=== PATIENT | female | born 1985 | race Caucasian/White ===

== ENCOUNTER 2018-06-23 05:14 | Emergency (ER) | payer MEDICARE ==
[~2018-06-23] VITALS: Ht 170.2 cm; Wt 247.7 kg
[~2018-06-23 05:14] MED LIST: BAYER CHEWABLE81 MG PO; K-DUR20 MEQ PO; LAMICTAL150 MG PO; LASIX20 MG PO; LEVAQUIN500 MG PO; PERCOCET 10/3251 TA1 PO; PROAIR HFA8.5 GM INH; XANAX1 MG PO
[2018-06-23 05:15] VITALS: Ht 170.2 cm; Wt 247.7 kg
[2018-06-23] MEDS ORDERED: LASIX40 MG PO (05:16)
[2018-06-23] MEDS ORDERED: ADDERALL 30 MG30 MG PO (05:16)
[2018-06-23] MEDS ORDERED: CELEBREX400 MG PO (05:16)
[2018-06-23] MEDS ORDERED: LAMICTAL200 MG PO (05:16)
[2018-06-23] MEDS ORDERED: IMIPRAMINE10 MG PO (05:17)
[2018-06-23] MEDS ORDERED: SEROQUEL50 MG PO (05:17)
[2018-06-23] MEDS ORDERED: KLOR-CON 1010 MEQ (05:17)
[2018-06-23] MEDS ORDERED: CELEXA40 MG PO (05:19)
[2018-06-23 06:07] LABS: BASOPHILS 0.5 % (0-2); EOSINOPHILS 4.1 % (0-7); HEMATOCRIT 43.3 % (36.0-48.0); HEMOGLOBIN 13.9 g/dL (12-16); IMMATURE GRANULOCYTES 0.2 % (0-5); LYMPHOCYTES 24.1 % (15-50); MCH 32.1 pg (26.0-34.0); MCHC 32.1 g/dL (31.0-37.0); MEAN PLATELET VOLUME 9.7 fL (7.4-10.4); NEUTROPHILS 66.1 % (40-80); PLATELET COUNT 259 10x3/uL (130-400); RBC 4.33 10x6/uL (4.00-5.40); RDW 14.1 % (11.5-14.5); WBC 8.6 10x3/uL (4.8-10.8)
[2018-06-23 06:29] LABS: HCG SERUM NEGATIVE (NEGATIVE)
[2018-06-23 06:35] LABS: ALBUMIN 2.6 g/dL (3.4-5.0); ALKALINE PHOSPHATASE 57 U/L (46-116); ALT (SGPT) 30 U/L (10-68); BILIRUBIN - TOTAL 0.14 mg/dL (0.2-1.3); CALC OSMOLALITY 287 mosm/kg (275-300); CALCIUM 8.5 mg/dL (8.5-10.1); CARBON DIOXIDE 32.1 mmol/L (21.0-32.0); CHLORIDE - SERUM 106 mmol/L (98-107); CREATININE - SERUM 0.8 mg/dL (0.6-1.3); GLUCOSE 152 mg/dL (74-106); LIPASE 172 U/L (73-393); POTASSIUM - SERUM 3.8 mmol/L (3.5-5.1); PROTEIN - SERUM 6.2 g/dL (6.4-8.2); SODIUM 142 mmol/L (136-145); UREA NITROGEN 17 mg/dL (7-18); eGFR NON AFRICAN AMERICAN 89 mL/min (90-120)
[2018-06-23 06:51] VITALS: BP 124/75
[2018-06-23 07:06] LABS: AMORPHOUS SEDIMENT <1+ /lpf (NONE SEEN); APPEARANCE SL CLDY (CLEAR); BACTERIA FEW /hpf (NONE SEEN); BILIRUBIN NEGATIVE (NEGATIVE); COLOR YELLOW (YELLOW); GLUCOSE NEGATIVE (NEGATIVE); GRANULAR CAST RARE /lpf (NONE SEEN); HYALINE CAST 0-5 /lpf (NONE SEEN); KETONE NEGATIVE (NEGATIVE); MUCUS >1+ /lpf (NONE SEEN); NITRITE NEGATIVE (NEGATIVE); PROTEIN 1+ mg/dL (NEGATIVE); SPECIFIC GRAVITY 1.015 (1.005-1.020)
[2018-06-23 07:07] LABS: EPITHELIAL CELLS RARE /hpf (0-5); RED CELLS - URINE RARE /hpf (0-5)
== END 2018-06-23 06:52 | disposition home or self-care (01) ==
LOC: D.ER 05:14
PROVIDERS: Family Medicine
DX: R11.2 Nausea with vomiting, unspecified (principal); F17.200 Nicotine dependence, unspecified, uncomplicated

== ENCOUNTER 2021-05-11 04:44 | Inpatient (IN) | payer MEDICARE, MEDICAID ==
[~2021-05-11] VITALS: Ht 170.2 cm; Wt 254.5 kg
[~2021-05-11 04:44] MED LIST changes: +ADDERALL 30 MG30 MG PO; +CELEBREX400 MG PO; +CELEXA40 MG PO; +IMIPRAMINE10 MG PO; +KLOR-CON 1010 MEQ; +LAMICTAL200 MG PO; +LASIX40 MG PO; +SEROQUEL50 MG PO
[2021-05-11] MEDS ORDERED: LAMICTAL200 M1 PO ×2 (05:10→15:04)
[2021-05-11 06:22] LABS: BASOPHILS 0.8 % (0-2); EOSINOPHILS 1.9 % (0-7); HEMATOCRIT 37.3 % (36.0-48.0); HEMOGLOBIN 12.1 g/dL (12-16); LYMPHOCYTES 14.3 % (15-50); MCH 30.3 pg (26.0-34.0); MCHC 32.4 g/dL (31.0-37.0); MCV 93.6 fL (80.0-100.0); MEAN PLATELET VOLUME 7.3 fL (7.4-10.4); MONOCYTES 4.1 % (2-11); NEUTROPHILS 78.9 % (40-80); RBC 3.98 10x6/uL (4.00-5.40); RDW 15.3 % (11.5-14.5)
[2021-05-11 06:25] LABS: PLATELET COUNT 360 10x3/uL (130-400)
[2021-05-11 06:29] LABS: CALC OSMOLALITY 290 mosm/kg (275-300); CALCIUM 8.6 mg/dL (8.5-10.1); CARBON DIOXIDE 30.8 mmol/L (21.0-32.0); CHLORIDE - SERUM 106 mmol/L (98-107); CREATININE - SERUM 0.6 mg/dL (0.6-1.3); GLUCOSE 145 mg/dL (74-106); POTASSIUM - SERUM 3.4 mmol/L (3.5-5.1); SODIUM 144 mmol/L (136-145); UREA NITROGEN 14 mg/dL (7-18); eGFR NON AFRICAN AMERICAN > 90 mL/min (90-120)
[2021-05-11 06:44] LABS: ALBUMIN 2.7 g/dL (3.4-5.0); ALKALINE PHOSPHATASE 55 U/L (30-120); ALT (SGPT) 24 U/L (10-68); BILIRUBIN - TOTAL 0.37 mg/dL (0.2-1.3); C-REACTIVE PROTEIN 12.2 mg/dL (0.0-0.9); CREATINE KINASE 98 UL (21-215); PROTEIN - SERUM 6.7 g/dL (6.4-8.2)
[2021-05-11 06:45] LABS: LIPASE 34 U/L (73-393)
[2021-05-11 06:51] LABS: HCG SERUM NEGATIVE (NEGATIVE)
--- NOTE | 2021-05-11 07:09 | NUR ---
PT REPORT RECEIVED AT BEDSIDE FROM DORY MARTINEZ
--- NOTE | 2021-05-11 07:10 | NUR ---
PT REPORT RECEIVED AT BEDSIDE FROM DORY MARTINEZ
--- NOTE | 2021-05-11 12:35 | NUR ---
PT REPORT ATTEMPT X1 AT THIS TIME. RN NOT READY
[2021-05-11 13:02] VITALS: BP 126/78
--- NOTE | 2021-05-11 15:03 | NUR ---
ARRIVED TO ROOM 2226 AT THIS TIME AWAKE AND ALERT. RESP EVEN AND UNLABORED WITH NO DISTRESS NOTED. CAN EXPRESS NEEDS AND WANTS WITH NO C/O NOTED OR VOICED. REDNESS NOTED TO LEFT LOWER EXT. ORIENTED TO C/L SYSTEM WITH CL IN REACH.
[2021-05-11] MEDS ORDERED: LIPITOR20 MG PO (15:07)
[2021-05-11 15:49] VITALS: BP 134/83; Ht 170.2 cm; Wt 254.5 kg
[2021-05-11 17:04] VITALS: BP 134/83
[2021-05-11 18:33] LABS: BILIRUBIN NEGATIVE (NEGATIVE); KETONE TRACE mg/dL (< 1+); NITRITE NEGATIVE (NEGATIVE); PH 5.5 (5.0-8.0); SQUAMOUS EPITHELIAL 2 HPF (0-4); UROBILINOGEN NORMAL mg/dL (< 2); WHITE CELLS - URINE 3 HPF (0-4)
--- NOTE | 2021-05-11 18:56 | NUR ---
C/O LEG PAIN RATING 10/10 ON PAIN SCALE. C/L IN REACH AT BEDSIDE.
[2021-05-11 18:57] LABS: UDS - AMPHET NEGATIVE QUAL (NEGATIVE); UDS - BARB NEGATIVE QUAL (NEGATIVE); UDS - BENZO NEGATIVE QUAL (NEGATIVE); UDS - COCAINE NEGATIVE QUAL (NEGATIVE); UDS - OPIATE POSITIVE QUAL (NEGATIVE); UDS - PCP NEGATIVE QUAL (NEGATIVE); UDS - THC POSITIVE QUAL (NEGATIVE)
[2021-05-11 19:10] LABS: ERYTHROCYTE SEDIMENTATION RATE 34 mm/hr (0-20)
[2021-05-11 20:00] VITALS: BP 131/84
[2021-05-12] VITALS: BP 139/73
[2021-05-12 04:00] VITALS: BP 126/74
[2021-05-12 07:15] LABS: BASOPHILS 0.9 % (0-2); EOSINOPHILS 2.7 % (0-7); HEMATOCRIT 35.8 % (36.0-48.0); HEMOGLOBIN 11.7 g/dL (12-16); LYMPHOCYTES 20.9 % (15-50); MCH 30.7 pg (26.0-34.0); MCHC 32.6 g/dL (31.0-37.0); MCV 94.2 fL (80.0-100.0); MEAN PLATELET VOLUME 7.4 fL (7.4-10.4); MONOCYTES 5.8 % (2-11); NEUTROPHILS 69.7 % (40-80); PLATELET COUNT 364 10x3/uL (130-400); RDW 15.3 % (11.5-14.5); WBC 9.2 10x3/uL (4.8-10.8)
[2021-05-12 07:40] LABS: ALBUMIN 2.5 g/dL (3.4-5.0); ALKALINE PHOSPHATASE 53 U/L (30-120); ALT (SGPT) 22 U/L (10-68); CALC OSMOLALITY 288 mosm/kg (275-300); CALCIUM 8.7 mg/dL (8.5-10.1); CARBON DIOXIDE 30.8 mmol/L (21.0-32.0); CHLORIDE - SERUM 107 mmol/L (98-107); CREATININE - SERUM 0.6 mg/dL (0.6-1.3); GLUCOSE 148 mg/dL (74-106); PROTEIN - SERUM 6.4 g/dL (6.4-8.2); SODIUM 143 mmol/L (136-145); UREA NITROGEN 16 mg/dL (7-18); eGFR NON AFRICAN AMERICAN > 90 mL/min (90-120)
[2021-05-12 07:41] LABS: POTASSIUM - SERUM 4.1 mmol/L (3.5-5.1)
[2021-05-12 09:41] VITALS: BP 111/63
--- NOTE | 2021-05-12 14:57 | NUR ---
I have reviewed this patient and I concur with the Shift Assessment completed by the Licensed Practical Nurse today this shift.
--- NOTE | 2021-05-12 16:39 | NUR ---
I have reviewed this patient and I concur with the Shift Assessment completed by the Licensed Practical Nurse today this shift.
[2021-05-12 18:10] VITALS: BP 147/64
[2021-05-12 21:05] VITALS: BP 122/68
[2021-05-13 04:25] VITALS: BP 119/76
[2021-05-13 06:44] LABS: BASOPHILS 0.7 % (0-2); EOSINOPHILS 2.2 % (0-7); HEMATOCRIT 37.1 % (36.0-48.0); HEMOGLOBIN 11.9 g/dL (12-16); LYMPHOCYTES 18.5 % (15-50); MCH 30.1 pg (26.0-34.0); MCV 93.9 fL (80.0-100.0); MEAN PLATELET VOLUME 7.2 fL (7.4-10.4); MONOCYTES 4.1 % (2-11); NEUTROPHILS 74.5 % (40-80); PLATELET COUNT 381 10x3/uL (130-400); RBC 3.95 10x6/uL (4.00-5.40); RDW 15.8 % (11.5-14.5); WBC 9.8 10x3/uL (4.8-10.8)
[2021-05-13 06:47] LABS: ALBUMIN 2.6 g/dL (3.4-5.0); ALKALINE PHOSPHATASE 53 U/L (30-120); ALT (SGPT) 26 U/L (10-68); BILIRUBIN - TOTAL 0.34 mg/dL (0.2-1.3); CALCIUM 8.5 mg/dL (8.5-10.1); CARBON DIOXIDE 32.4 mmol/L (21.0-32.0); CREATININE - SERUM 0.6 mg/dL (0.6-1.3); GLUCOSE 107 mg/dL (74-106); PROTEIN - SERUM 6.5 g/dL (6.4-8.2); UREA NITROGEN 15 mg/dL (7-18); eGFR NON AFRICAN AMERICAN > 90 mL/min (90-120)
[2021-05-13 07:04] LABS: CALC OSMOLALITY 279 mosm/kg (275-300); CHLORIDE - SERUM 105 mmol/L (98-107); POTASSIUM - SERUM 4.3 mmol/L (3.5-5.1); SODIUM 140 mmol/L (136-145)
--- NOTE | 2021-05-13 08:22 | NUR ---
RECIEVED BEDSIDE REPORT. BED LOW POSITION, CALL LIGHT IN REACH. RESTING IN BED. WILL CONTINUE TO MONITOR.
[2021-05-13 09:33] VITALS: BP 144/93
--- NOTE | 2021-05-13 12:45 | NUR ---
NEW IV PLACED IN RIGHT UPPER ARM. X1 ATTEMPT. 22 GAUGE.
[2021-05-13] MEDS ORDERED: AUGMENTIN 875-11 TAB PO (13:08)
[2021-05-13 13:22] VITALS: BP 132/84
[2021-05-13] MEDS ORDERED: MORPHINE SULFAT15 M4 PO (13:49)
--- NOTE | 2021-05-13 14:50 | NUR ---
DISCHARGE PAPERS COMPLETE. IV CATH REMOVED, CATH TIP INTACT. DENIES FURTHER QUESTIONS. BELONGINGS GATHERED. LEFT UNIT VIA WHEELCHAIR TO HOME AT THIS TIME.
--- NOTE | 2021-05-13 20:35 | MORECARE ---
CASE MANAGEMENT DISCHARGE SUMMARY PATIENT: LANCE MOTA UNIT: [id number] ADM DATE: 05/11/21 AGE: 36 : 89 SEX: F ROOM/BED: D.2226 AUTHOR: ARCHIE MARX PHYSICIAN: REFERRING PHYSICIAN: CARLTON BLISS DO DATE OF SERVICE: 05/13/21 Case Management Discharge Planning Summary COMMENTS ENTERED DATE: 05/13/21 20:33 CT COMMENT TYPE: Discharge Planning REVIEWER: Cooper Corea CM met with patient to complete DC plan and to evaluate needs. Patient lives independently with family. Patient stated that her person to notify is her mother, Jerrod Mills, . Patient stated that her home is safe and has electricity and running water. Patient stated that the home has a ramp to enter and she is able to manage entry without difficulty. Patient stated that she has no problems paying for medications and she fills her medications at [facility] on [address]. Patient stated that her primary care physician is Dr. Jewell. At discharge, the patient plans to return home and feels this is a safe discharge. CM discussed availability of home health, rehab services, and medical equipment. Patient declined SNF, IPR, and DME but would like Home Health through [facility]. LANE signed and placed in chart. Patient voiced no other needs at this time and is satisfied with DC plan. DC IMM delivered, explained, signed by the patient, and placed in chart. Signed form also left with the patient. CM will continue to follow and will assist as needed with dc plans/needs. DCP REVIEW SUMMARY ANTICIPATED D/C DATE: 05/13/2021 EXPECTED LOS : 2 CASE STATUS: DCP Initiated INITIAL REVIEW: 05/11/2021 INITIAL REVIEWER: Cooper Corea FINAL DISCHARGE DISPOSITION: : FINAL REVIEWER: FINAL REVIEW DATE: DCP Focus Questions & Answers DCP Evaluation QUESTION: ANSWER Patient gives permission to discuss discharge plans with: (name, relationship and number) : mother, Jerrod Mills, . Patient's ability to cope with chronic illness : d. No chronic illness Patient's current cognitive status: : *Oriented to person, place, situation, time and present Family / Caregiver's ability to cope with chronic illness: : a. Adequate (ability to meet patient's medical needs, ensures patient attends medical appts.) Patient and/or caregiver agree upon recommended discharge plan? : Yes Physical Status: : Independent with ADL's Family / Caregiver's ability to cope with chronic illness: : a. Adequate (ability to meet patient's medical needs, ensures patient attends medical appts.) Functional screen assessment: : Basic needs can adequately be met by self Does the patient have the ability to pay for or attain post discharge needs / services? : Yes Living Arrangements: : Home with Extended Family Is there a likelihood that the patient will require additional services to return to the preadmission environment? : Yes Equipment needed for post hospitalization: : None Baseline cognitive status: : *Oriented to person, place, situation, time and present Patient with capacity for self-care or can be cared for in same environment as prior to hospitalization? : Yes Physical environment modification needed / anticipated for discharge: : No Medication Management: : Patient states can afford medications Medication Management: : Patient states can read and understand medication labels Pharmacy name(s): : [facility] [place]. Does Patient have transportation to get home and to follow-up medical appointments when discharged from the hospital? : Yes Would patient like to participate in any Care Coordination programs (if applicable): : Not applicable Does the patient have electricity at home? : Yes Does the patient have running water in their house? : Yes Equipment in use: : Cane - Single Leg Equipment in use: : Walker - Rolling Mental health screen: : No mental health history DCP Re-evaluation QUESTION: ANSWER Would patient like to participate in any Care Coordination programs (if applicable): : Not applicable PATIENT: LANCE MOTA ENCOUNTER: [id number] MEDICAL RECORD#: [id number] ADMISSION DATE: 05/11/2021 DISCHARGE DATE: 05/13/2021 ATTENDING MD: CARLTON MINOR : AGE: 36 MARITAL STATUS: S DC PLAN ID: [id number] FACILITY: [facility] PRINTED ON: 05/13/21 20:35 CT All edits/amendments must be made on the electronic document DICTATION DATE: 05/13/212034 JACKSCREW MAN: ALAYNA 05/13/212034 RPT#: [id number] DC DATE:05/13/21 STATUS: DIS IN [facility] [address] [place] [address] END OF REPORT
--- NOTE | 2021-05-15 08:50 | MORECARE ---
CASE MANAGEMENT DISCHARGE SUMMARY PATIENT: LANCE MOTA UNIT: [id number] ADM DATE: 05/11/21 AGE: 36 : 89 SEX: F ROOM/BED: D.2226 AUTHOR: ARCHIE MARX PHYSICIAN: REFERRING PHYSICIAN: CARLTON BLISS DO DATE OF SERVICE: 05/15/21 Case Management Discharge Planning Summary COMMENTS ENTERED DATE: 05/13/21 20:33 CT COMMENT TYPE: Discharge Planning REVIEWER: Cooper Corea CM met with patient to complete DC plan and to evaluate needs. Patient lives independently with family. Patient stated that her person to notify is her mother, Jerrod Mills, . Patient stated that her home is safe and has electricity and running water. Patient stated that the home has a ramp to enter and she is able to manage entry without difficulty. Patient stated that she has no problems paying for medications and she fills her medications at [facility] on [address]. Patient stated that her primary care physician is Dr. Jewell. At discharge, the patient plans to return home and feels this is a safe discharge. CM discussed availability of home health, rehab services, and medical equipment. Patient declined SNF, IPR, and DME but would like Home Health through [facility]. LANE signed and placed in chart. Patient voiced no other needs at this time and is satisfied with DC plan. DC IMM delivered, explained, signed by the patient, and placed in chart. Signed form also left with the patient. CM will continue to follow and will assist as needed with dc plans/needs. DCP REVIEW SUMMARY ANTICIPATED D/C DATE: 05/13/2021 EXPECTED LOS : 2 CASE STATUS: DCP Initiated INITIAL REVIEW: 05/11/2021 INITIAL REVIEWER: Cooper Corea FINAL DISCHARGE DISPOSITION: : FINAL REVIEWER: FINAL REVIEW DATE: DCP Focus Questions & Answers DCP Evaluation QUESTION: ANSWER Patient gives permission to discuss discharge plans with: (name, relationship and number) : mother, Jerrod Mills, . Patient's ability to cope with chronic illness : d. No chronic illness Patient's current cognitive status: : *Oriented to person, place, situation, time and present Family / Caregiver's ability to cope with chronic illness: : a. Adequate (ability to meet patient's medical needs, ensures patient attends medical appts.) Patient and/or caregiver agree upon recommended discharge plan? : Yes Physical Status: : Independent with ADL's Family / Caregiver's ability to cope with chronic illness: : a. Adequate (ability to meet patient's medical needs, ensures patient attends medical appts.) Functional screen assessment: : Basic needs can adequately be met by self Does the patient have the ability to pay for or attain post discharge needs / services? : Yes Living Arrangements: : Home with Extended Family Is there a likelihood that the patient will require additional services to return to the preadmission environment? : Yes Equipment needed for post hospitalization: : None Baseline cognitive status: : *Oriented to person, place, situation, time and present Patient with capacity for self-care or can be cared for in same environment as prior to hospitalization? : Yes Physical environment modification needed / anticipated for discharge: : No Medication Management: : Patient states can afford medications Medication Management: : Patient states can read and understand medication labels Pharmacy name(s): : [facility] [place]. Does Patient have transportation to get home and to follow-up medical appointments when discharged from the hospital? : Yes Would patient like to participate in any Care Coordination programs (if applicable): : Not applicable Does the patient have electricity at home? : Yes Does the patient have running water in their house? : Yes Equipment in use: : Cane - Single Leg Equipment in use: : Walker - Rolling Mental health screen: : No mental health history DCP Re-evaluation QUESTION: ANSWER Would patient like to participate in any Care Coordination programs (if applicable): : Not applicable PATIENT: LANCE MOTA ENCOUNTER: [id number] MEDICAL RECORD#: [id number] ADMISSION DATE: 05/11/2021 DISCHARGE DATE: 05/13/2021 ATTENDING MD: CARLTON MINOR : AGE: 36 MARITAL STATUS: S DC PLAN ID: [id number] FACILITY: [facility] PRINTED ON: 05/15/21 8:50 CT All edits/amendments must be made on the electronic document DICTATION DATE: 05/15/21849 HOME HEALTH SPECIALIST: ALAYNA 05/15/2150 RPT#: [id number] DC DATE:05/13/21 STATUS: DIS IN [facility] [address] [place] [address] END OF REPORT
--- NOTE | 2021-05-15 09:22 | MORECARE ---
CASE MANAGEMENT DISCHARGE SUMMARY PATIENT: LANCE MOTA UNIT: [id number] ADM DATE: 05/11/21 AGE: 36 : 89 SEX: F ROOM/BED: D.2226 AUTHOR: ARCHIE MARX PHYSICIAN: REFERRING PHYSICIAN: CARLTON BLISS DO DATE OF SERVICE: 05/15/21 Case Management Discharge Planning Summary COMMENTS ENTERED DATE: 05/13/21 20:33 CT COMMENT TYPE: Discharge Planning REVIEWER: Cooper Corea CM met with patient to complete DC plan and to evaluate needs. Patient lives independently with family. Patient stated that her person to notify is her mother, Jerrod Mills, . Patient stated that her home is safe and has electricity and running water. Patient stated that the home has a ramp to enter and she is able to manage entry without difficulty. Patient stated that she has no problems paying for medications and she fills her medications at [facility] on [address]. Patient stated that her primary care physician is Dr. Jewell. At discharge, the patient plans to return home and feels this is a safe discharge. CM discussed availability of home health, rehab services, and medical equipment. Patient declined SNF, IPR, and DME but would like Home Health through [facility]. LANE signed and placed in chart. Patient voiced no other needs at this time and is satisfied with DC plan. DC IMM delivered, explained, signed by the patient, and placed in chart. Signed form also left with the patient. CM will continue to follow and will assist as needed with dc plans/needs. DCP REVIEW SUMMARY ANTICIPATED D/C DATE: 05/13/2021 EXPECTED LOS : 2 CASE STATUS: DCP Initiated INITIAL REVIEW: 05/11/2021 INITIAL REVIEWER: Cooper Corea FINAL DISCHARGE DISPOSITION: : FINAL REVIEWER: FINAL REVIEW DATE: DCP Focus Questions & Answers DCP Evaluation QUESTION: ANSWER Patient gives permission to discuss discharge plans with: (name, relationship and number) : mother, Jerrod Mills, . Patient's ability to cope with chronic illness : d. No chronic illness Patient's current cognitive status: : *Oriented to person, place, situation, time and present Family / Caregiver's ability to cope with chronic illness: : a. Adequate (ability to meet patient's medical needs, ensures patient attends medical appts.) Patient and/or caregiver agree upon recommended discharge plan? : Yes Physical Status: : Independent with ADL's Family / Caregiver's ability to cope with chronic illness: : a. Adequate (ability to meet patient's medical needs, ensures patient attends medical appts.) Functional screen assessment: : Basic needs can adequately be met by self Does the patient have the ability to pay for or attain post discharge needs / services? : Yes Living Arrangements: : Home with Extended Family Is there a likelihood that the patient will require additional services to return to the preadmission environment? : Yes Equipment needed for post hospitalization: : None Baseline cognitive status: : *Oriented to person, place, situation, time and present Patient with capacity for self-care or can be cared for in same environment as prior to hospitalization? : Yes Physical environment modification needed / anticipated for discharge: : No Medication Management: : Patient states can afford medications Medication Management: : Patient states can read and understand medication labels Pharmacy name(s): : [facility] [place]. Does Patient have transportation to get home and to follow-up medical appointments when discharged from the hospital? : Yes Would patient like to participate in any Care Coordination programs (if applicable): : Not applicable Does the patient have electricity at home? : Yes Does the patient have running water in their house? : Yes Equipment in use: : Cane - Single Leg Equipment in use: : Walker - Rolling Mental health screen: : No mental health history DCP Re-evaluation QUESTION: ANSWER Would patient like to participate in any Care Coordination programs (if applicable): : Not applicable PATIENT: LANCE MOTA ENCOUNTER: [id number] MEDICAL RECORD#: [id number] ADMISSION DATE: 05/11/2021 DISCHARGE DATE: 05/13/2021 ATTENDING MD: CARLTON MINOR : AGE: 36 MARITAL STATUS: S DC PLAN ID: [id number] FACILITY: [facility] PRINTED ON: 05/15/21 9:22 CT All edits/amendments must be made on the electronic document DICTATION DATE: 05/15/21921 MANAGER SCHEDULING: ALAYNA 05/15/21921 RPT#: [id number] DC DATE:05/13/21 STATUS: DIS IN [facility] [address] [place] [address] END OF REPORT
== END 2021-05-13 14:51 | disposition home health service (06) | DRG 872 ==
LOC: D.ER 04:44 → D.EDHOLD 05:31 → D.MS 05:31
PROVIDERS: Family Medicine; ADMIT Family Medicine; ATTEND Family Medicine
DX: A41.9 Sepsis, unspecified organism (principal); L03.116 Cellulitis of left lower limb; Z68.45 Body mass index [BMI] 70 or greater, adult; J45.909 Unspecified asthma, uncomplicated; F41.9 Anxiety disorder, unspecified; S80.12XA Contusion of left lower leg, initial encounter; S80.11XA Contusion of right lower leg, initial encounter; S30.1XXA Contusion of abdominal wall, initial encounter; V89.2XXA Person injured in unspecified motor-vehicle accident, traffic, initial encounter; F32.9 Major depressive disorder, single episode, unspecified; E66.01 Morbid (severe) obesity due to excess calories